=== PATIENT | female | born 1950 | race Caucasian/White ===

== ENCOUNTER 2025-01-31 07:57 | Day surgery (SDC) | payer MEDICARE, BC ==
[2025-01-31] MEDS ORDERED: Flumazenil 0.1 MG/ML 5 ML MDV ONE (08:45)
[2025-01-31] MEDS ORDERED: Propofol 200 MG/20 ML SDV ONE (08:45)
[2025-01-31] MEDS ORDERED: Midazolam 1 MG/ML 2 ML SDV ONE (08:45)
[2025-01-31] MEDS ORDERED: ePHEDrine 50 MG/ML SDV ONE (08:45)
[2025-01-31] MEDS ORDERED: fentaNYL 50 MCG/ML SDV ONE (08:45)
[2025-01-31] MEDS: Lactated Ringers 1,000 ML IV SCH (08:58)
== END 2025-01-31 11:15 | disposition home or self-care (01) ==
LOC: CC.SDS 07:57
PROVIDERS: ATTEND Family Medicine
DX: D12.2 Benign neoplasm of ascending colon (principal); K63.89 Other specified diseases of intestine; K29.80 Duodenitis without bleeding; K31.89 Other diseases of stomach and duodenum; D50.9 Iron deficiency anemia, unspecified; E78.5 Hyperlipidemia, unspecified; F41.8 Other specified anxiety disorders; I10 Essential (primary) hypertension; E66.9 Obesity, unspecified; E11.9 Type 2 diabetes mellitus without complications; Z79.899 Other long term (current) drug therapy
CPT/HCPCS: 00811; 43239; 45380; 87081; 88305; 99100; J1596; J2003; J2250; J2704; J3010; J3490; J7120